=== PATIENT | male | born 1960 | race Caucasian/White ===

== ENCOUNTER 2016-12-13 23:45 | Emergency (ER) | payer OTHER ==
[~2016-12-13] VITALS: Ht 170.2 cm; Wt 110.2 kg
[2016-12-13 23:56] VITALS: BP 165/75
--- NOTE | 2016-12-14 00:03 | PHYS DOC ---
Past Medical History Past Medical History: Depression, Diabetes-Type II, High Cholesterol, Hypertension Past Surgical History: No Surgical History Alcohol Use: None Drug Use: None Adult General Chief Complaint Chief Complaint: ELBOW PROBLEM [facility] HPI Patient is a 56 year old male presents the emergency department stating that he is having swelling to the outer part of his right elbow. He states that this is been here for the last day to 2 days. He denies any pain or discomfort. He denies any warmth or tenderness to the area. He has full range of motion of the elbow. He denies any numbness or tingling down to his fingers. Patient does states he is a diabetic and denies any change in his glucoses. Patient denies any fever, chills or any nausea or vomiting. Patient states that he is left-hand -dominant. Review of Systems Review of Systems Constitutional: Denies fever or chills [] Eyes: Denies change in visual acuity, redness, or eye pain [] HENT: Denies nasal congestion or sore throat [] Respiratory: Denies cough or shortness of breath [] Cardiovascular: No additional information not addressed in HPI [] GI: Denies abdominal pain, nausea, vomiting, bloody stools or diarrhea [] : Denies dysuria or hematuria [] Musculoskeletal: Denies back pain. Swelling to right elbow Integument: Denies rash or skin lesions [] Neurologic: Denies headache, focal weakness or sensory changes [] Allergies Allergies Allergies Coded Allergies Type Severity Reaction Last Updated Verified No Known Drug Allergies 05/31/14 No Physical Exam Physical Exam Constitutional: Well developed, well nourished, no acute distress, non-toxic appearance. [] HENT: Normocephalic, atraumatic, bilateral external ears normal, oropharynx moist, no oral exudates, nose normal. [] Eyes: PERRLA, EOMI, conjunctiva normal, no discharge. [] Neck: Normal range of motion, no tenderness, supple, no stridor. [] Cardiovascular:Heart rate regular rhythm, no murmur [] Lungs & Thorax: Bilateral breath sounds clear to auscultation [] Skin: Warm, dry, no erythema, no rash. [] Back: No tenderness Extremities: No tenderness, no cyanosis, no clubbing, ROM intact, no edema. Right elbow swelling noted with no redness no warmth noted tenderness noted. Patient with full range of motion to the elbow noted peripheral pulses 2+ cap refill brisk less than 2 seconds. Good strength noted to bilateral painter maintenance. Good sensation noted to the right hand. Neurologic: Alert and oriented X 3, normal motor function, normal sensory function, no focal deficits noted. [] Psychologic: Affect normal, judgement normal, mood normal. [] Current Patient Data Vital Signs Vital Signs Date Time Temp Pulse Resp B/P Pulse Ox O2 Delivery O2 Flow Rate FiO2 12/13/16 23:56 97.6 86 18 100 Room Air 97.6 EKG EKG [] Radiology/Procedures Radiology/Procedures [] Course & Med Decision Making Course & Med Decision Making Pertinent Labs and Imaging studies reviewed. (See chart for details) X-rays were negative for any bony abnormalities. Per Dr. Howell does appear to that there is fluid on the elbow area. He'll be placed in an Jagdeep wrap with recommendations to follow-up with orthopedic within the next 3-5 days. Signs and symptoms to return back to the emergency department as been provided. Patient agrees with discharge instructions treatment regimens and follow-up recommendations. [] Dragon Disclaimer Dragon Disclaimer This electronic medical record was generated, in whole or in part, using a voice recognition dictation system. Departure Departure Impression: Primary Impression: Effusion, left elbow Disposition: 01 HOME, SELF-CARE Condition: STABLE Referrals: ABDELRAHMAN SANTILLAN MD (PCP) SINDI STEWART MD Patient Instructions: Elbow Effusion-Brief Additional Instructions: Activity as tolerated Tylenol or Ibuprofen for pain and discomfort Jagdeep wrap for comfort Elevation as much as possible Followup with orthopedic in 5-7 days Return to emergency department as needed for signs and symptoms that become worse. FLORES BELTRAN APRN December 14, 2016 00:03
--- NOTE | 2016-12-14 07:05 | RAD ---
Right elbow, 3 views, 12/14/2016: History: Elbow swelling There is a well-defined bony fragment along the lateral margin of the lateral humeral epicondyles compatible with old trauma. No acute fracture or dislocation is identified. There is mild spurring at the elbow joint. No joint effusion is seen. There is moderate focal soft tissue swelling along the posterior aspect of the olecranon process. IMPRESSION: 1. No acute bony abnormality is detected. 2. Moderate focal soft tissue swelling posteriorly may reflect bursitis, hematoma or even abscess. Clinical correlation suggested.
== END 2016-12-14 00:35 | disposition home or self-care (01) ==
LOC: ER 23:45
DX: M25.422 Effusion, left elbow (principal); I10 Essential (primary) hypertension; E78.00 Pure hypercholesterolemia, unspecified; E11.9 Type 2 diabetes mellitus without complications; F32.9 Major depressive disorder, single episode, unspecified
CPT/HCPCS: 73080; 99284

== ENCOUNTER 2021-10-19 17:43 | Inpatient (IN) | payer OTHER ==
[~2021-10-19] VITALS: Ht 175.3 cm; Wt 95.4 kg
[~2021-10-19 17:43] MED LIST: AMOX1TAB61 PO; APIX5TAB PO; ATOR20TA58 PO; CHOL500062 PO; CLOP75TA PO; INSU100V13 SQ; INSU100V6 SQ; LISI20TA18 PO; MAGN400T48 PO; ONDA4TAB7 PO; PANT20TA2 PO; POLY2500 PO; SERT50TA PO
--- NOTE | 2021-10-19 18:10 | PHYS DOC ---
Past Medical History Past Medical History: Depression, Diabetes-Type II, High Cholesterol, Heart Disease, Hypertension, Stroke Past Surgical History: No Surgical History Smoking Status: Current Every Day Smoker Alcohol Use: None Drug Use: None General Adult EDM: Chief Complaint: ABNORMAL LABS HPI: HPI: Patient is a 61 year old male who presents with here from [place] let the [facility] with he had a witnessed fall today by staff of which they state he did not hit his head. They state that for the last 2 days he has been more lethargic than usual. They state no other symptoms. Because of the fall today they went and did some blood work and some x-rays and blood work showed he is hypernatremic. He is here today to be treated for hypernatremia. Patient has a history of stroke with cognitive functions, mute, dementia without behavior disturbance, hyperlipidemia, type 2 diabetes, neuropathy, overflow incontinence, atrial septal defect, heart aneurysm, chronic kidney disease stage II, diabetic retinopathy, coronary artery disease, hypertension. Review of Systems: Review of Systems: Constitutional: Denies fever or chills. + Hypernatremia [] Eyes: Denies change in visual acuity. [] HENT: Denies nasal congestion or sore throat. [] Respiratory: Denies cough or shortness of breath. [] Cardiovascular: Denies chest pain or edema. [] GI: Denies abdominal pain, nausea, vomiting, bloody stools or diarrhea. [] : Denies dysuria. [] Musculoskeletal: Denies back pain or joint pain. [] Integument: Denies rash. [] Neurologic: Denies headache, focal weakness or sensory changes. + Lethargy [] Endocrine: Denies polyuria or polydipsia. [] Lymphatic: Denies swollen glands. [] Psychiatric: Denies depression or anxiety. [] Heart Score: C/O Chest Pain: No HEART Score for Chest Pain: HEART Score for Chest Pain Response (Comments) Value History Slighlty/Non-Suspicious 0 ECG Nonspecific Repolarizatio 1 Age >45 - < 65 1 Risk Factors >3 Risk Factors or Hx CAD 2 Troponin < Normal Limit 0 Total 4 Risk Factors: Risk Factors: DM, Current or recent (<one month) smoker, HTN, HLP, family history of CAD, obesity. Risk Scores: Score 0 - 3: 2.5% MACE over next 6 weeks - Discharge Home Score 4 - 6: 20.3% MACE over next 6 weeks - Admit for Clinical Observation Score 7 - 10: 72.7% MACE over next 6 weeks - Early Invasive Strategies Allergies: Allergies: Allergies Coded Allergies Type Severity Reaction Last Updated Verified No Known Drug Allergies 05/31/14 No Physical Exam: PE: Constitutional: Well developed, well nourished, no acute distress, non-toxic appearance. [] HENT: Normocephalic, atraumatic, bilateral external ears normal, oropharynx moist, no oral exudates, nose normal. Dry mucous membranes. [] Eyes: PERRLA, EOMI, conjunctiva normal, no discharge. [] Neck: Normal range of motion, no tenderness, supple, no stridor. [] Cardiovascular:Heart rate regular rhythm, no murmur [] Lungs & Thorax: Bilateral breath sounds clear to auscultation [] Abdomen: Bowel sounds normal, soft, no tenderness, no masses, no pulsatile masses. [] Skin: Warm, dry, no erythema, no rash. Slight tenting. [] Back: No tenderness, no CVA tenderness. [] Extremities: No tenderness, no cyanosis, no clubbing, ROM intact, no edema. [] Neurologic: Alert and oriented X 3, normal motor function, normal sensory function, no focal deficits noted. Mute but follows commands [] Psychologic: Affect normal, judgement normal, mood normal. [] EKG: EK and read by Dr. Eller is a sinus rhythm with incomplete right bundle bran ch block but no STEMI. [] Radiology/Procedures: Radiology/Procedures: [] Impression: [facility] [address] [place], [place] [id number] IMAGING REPORT Signed PATIENT: RODRIGUEZ HITCHCOCK ACCOUNT: [id number] : 1960 LOCATION: ER AGE: 61 SEX: M EXAM STATUS: REG ER ORD. PHYSICIAN: FLORES MABRY APRN REASON: LETHRAGY PROCEDURE: PORTABLE CHEST 1V XR CHEST 1V History: Reason: LETHRAGY / Spl. Instructions: / History: Comparison: September 30, 2019 Findings: Mild ill-defined right upper lung opacity. Prominent epicardial fat pad. No pleural effusion. No pneumothorax. Unchanged heart size. Calcified right basilar pulmonary nodule, likely prior granulomatous disease. Impression: 1. Mild ill-defined right upper lung opacity, may represent atelectasis or pneumonia. Recommend follow-up to ensure resolution. Electronically signed by: Leonardo Meehan DO (10/19/2021 7:12 PM) [facility] DICTATED and SIGNED BY: LEONARDO MEEHAN DO DATE: 10/19/21 [id number] [facility] [address] [place] [address] IMAGING REPORT Signed PATIENT: RODRIGUEZ HITCHCOCK ACCOUNT: [id number] : 1960 LOCATION: ER AGE: 61 SEX: M EXAM STATUS: REG ER ORD. PHYSICIAN: FLORES MABRY APRN REASON: FALL, LETHARGY PROCEDURE: CT HEAD AND CERVICAL SPINE WO EXAM: CT HEAD WITHOUT IV CONTRAST CLINICAL HISTORY: Reason: FALL, LETHARGY / Spl. Instructions: / History: COMPARISON: None. TECHNIQUE: Routine CT of the head without contrast. Soft tissues and bone windows were r eviewed. PQRS compliance statement - One or more of the following individualized dose reduction techniques were utilized for this study: 1. Automated exposure control 2. Adjustment of the mA and/or kV according to patient size 3. Use of iterative reconstruction technique FINDINGS: There is no evidence of hemorrhage, mass or extra-axial fluid collection. Encephalomalacia left posterior parietal region extending to the temporal lobe from old infarct, stable to 09/30/2019. Otherwise, Granado-white differentiation is maintained with no evidence of edema. Subcortical, periventricular as well as deep white matter foci of hypoattenuation likely changes of chronic small vessel disease. There is no mass effect or shift of the intracranial structures. The ventricles, basilar cisterns and cortical sulci are normal in size and configuration for the patients stated age. The cerebellum and brainstem are unremarkable. The calvarium demonstrates no evidence of fracture or focal lesion. There is normal aeration of the visualized paranasal sinuses and mastoid air cells. The visualized portions of the orbits are normal. Atherosclerotic calcifications of the intracranial internal carotid and vertebral arteries is seen. IMPRESSION: 1. No evidence for acute intracranial process. 2. White matter changes likely chronic small vessel disease. Encephalomalacia left parietal region if there is clinical concern for superimposed acute infarct, MRI is recommended. EXAM: CT CERVICAL SPINE WITHOUT IV CONTRAST CLINICAL HISTORY: Reason: FALL, LETHARGY / Spl. Instructions: / History: COMPARISON: None available. TECHNIQUE: Helical CT of the cervical spine was performed. Axial, coronal and sagittal reformatted images were also performed. PQRS compliance statement - One or more of the following individualized dose reduction techniques were utilized for this study: 1. Automated exposure control 2. Adjustment of the mA and/or kV according to patient size 3. Use of iterative reconstruction technique FINDINGS: Vertebral body heights are preserved. No spondylolisthesis. Atlantodental degenerative changes are seen. Mild C4-5, C5-6 disc height loss. Small posterior disc osteophyte complexes at these levels. No spondylolisthesis. Straightening of the normal cervical lordosis. IMPRESSION: 1. Multilevel spondylosis as above 2. Negative acute fracture or subluxation. Electronically signed by: Edmond Royal MD (10/19/2021 7:11 PM) [facility] DICTATED and SIGNED BY: EDMOND ROYAL MD DATE: 10/19/21 [id number] 0 Course & Med Decision Making: Course & Med Decision Making Pertinent Labs and Imaging studies reviewed. (See chart for details) See HPI. Mucous membranes are dry. There is slight tenting. Patient is following commands. 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 Lungs are clear in upper lobes diminished in lower lobes. Skin pink warm and dry. I spoke to Dr. Morin who stated to start the patient on D5W at 150 an hour. He stated to do the high intensity insulin sliding scale every 6 hours. Patient received 1 L of LR that was okayed by Dr. Eller to give when the patient got here. Patient hypotensive. Dr. Morin stated that the nursing facility stated that he was lethargic, was running a fever and had a fall. We did not get a report of any fever or possible infection. This x-ray shows possible pneumonia. I went ahead and start him on azithromycin and Rocephin. I have spoken to the daughter and gave her an update on the patient. Patient is shaking his head yes and no when questions are asked. [] Espinoza Disclaimer: Dragkiel Disclaimer: This electronic medical record was generated, in whole or in part, using a voice recognition dictation system. Departure Departure Impression: Primary Impression: Hypernatremia Additional Impressions: Hypotension Qualified Codes: I95.9 - Hypotension, unspecified Pneumonia Qualified Codes: J18.9 - Pneumonia, unspecified organism Disposition: ADMITTED INPATIENT Admitting Physician: Madi. Brasher Condition: STABLE Referrals: ROSANGELA MORIN MD (PCP) FLORES MABRY MAINTENANCE PORTER Oct 19, 2021 18:10
[2021-10-19] MEDS ORDERED: IV RINGERS,LACTATED 500ML 500 ML IV ONE (18:15)
[2021-10-19 18:42] LABS: BASO % 0 % (0-3); EOS # 0.1 x10^3/uL (0.0-0.7); EOS % 1 % (0-3); HEMATOCRIT 39.3 % (39.0-53.0); HEMOGLOBIN 12.6 g/dL (13.0-17.5); LYMPH % 19 % (24-48); MEAN CORPUSCULAR HEMOGLOBIN 30 pg (25-35); MEAN CORPUSCULAR HGB CONC 32 g/dL (31-37); MEAN CORPUSCULAR VOLUME 95 fL (79-100); MONO # 0.4 x10^3/uL (0.0-1.1); MONO % 4 % (0-9); NEUT % 76 % (31-73); PLATELET COUNT 240 x10^3/uL (140-400); RED BLOOD COUNT 4.16 x10^6/uL (4.30-5.70); RED CELL DISTRIBUTION WIDTH 12.4 % (11.5-14.5); WHITE BLOOD COUNT 10.5 x10^3/uL (4.0-11.0)
[2021-10-19] MEDS ORDERED: IV RINGERS,LACTATED 1000ML 1,000 ML IV ONE (18:45)
[2021-10-19 19:02] LABS: ALBUMIN 3.9 g/dL (3.4-5.0); ALBUMIN/GLOBULIN RATIO 0.9 (1.0-1.7); CALCIUM 9.3 mg/dL (8.5-10.1); CREATININE 1.9 mg/dL (0.7-1.3); MAGNESIUM 3.2 mg/dL (1.8-2.4); POTASSIUM 4.2 mmol/L (3.5-5.1); TOTAL BILIRUBIN 0.5 mg/dL (0.2-1.0); TOTAL PROTEIN 8.1 g/dL (6.4-8.2)
--- NOTE | 2021-10-19 19:13 | RAD ---
EXAM: CT HEAD WITHOUT IV CONTRAST CLINICAL HISTORY: Reason: FALL, LETHARGY / Spl. Instructions: / History: COMPARISON: None. TECHNIQUE: Routine CT of the head without contrast. Soft tissues and bone windows were reviewed. PQRS compliance statement - One or more of the following individualized dose reduction techniques wer e utilized for this study: 1. Automated exposure control 2. Adjustment of the mA and/or kV according to patient size 3. Use of iterative reconstruction technique FINDINGS: There is no evidence of hemorrhage, mass or extra-axial fluid collection. Encephalomalacia left posterior parietal region extending to the temporal lobe from old infarct, stab le to 09/30/2019. Otherwise, Granado-white differentiation is maintained with no evidence of edema. Subco rtical, periventricular as well as deep white matter foci of hypoattenuation likely changes of chroni c small vessel disease. There is no mass effect or shift of the intracranial structures. The ventricles, basilar cisterns and cortical sulci are normal in size and configuration for the liza ents stated age. The cerebellum and brainstem are unremarkable. The calvarium demonstrates no evidence of fracture or focal lesion. There is normal aeration of the visualized paranasal sinuses and mastoid air cells. The visualized portions of the orbits are normal. Atherosclerotic calcifications of the intracranial internal carotid and vertebral arteries is seen. IMPRESSION: 1. No evidence for acute intracranial process. 2. White matter changes likely chronic small vessel disease. Encephalomalacia left parietal region i f there is clinical concern for superimposed acute infarct, MRI is recommended. EXAM: CT CERVICAL SPINE WITHOUT IV CONTRAST CLINICAL HISTORY: Reason: FALL, LETHARGY / Spl. Instructions: / History: COMPARISON: None available. TECHNIQUE: Helical CT of the cervical spine was performed. Axial, coronal and sagittal reformatted im ages were also performed. PQRS compliance statement - One or more of the following individualized dose reduction techniques wer e utilized for this study: 1. Automated exposure control 2. Adjustment of the mA and/or kV according to patient size 3. Use of iterative reconstruction technique FINDINGS: Vertebral body heights are preserved. No spondylolisthesis. Atlantodental degenerative changes are seen. Mild C4-5, C5-6 disc height loss. Small posterior disc osteophyte complexes at these levels. No spond ylolisthesis. Straightening of the normal cervical lordosis. IMPRESSION: 1. Multilevel spondylosis as above 2. Negative acute fracture or subluxation. Electronically signed by: Edmond Solano MD (10/19/2021 7:11 PM) [facility]
--- NOTE | 2021-10-19 19:14 | RAD ---
XR CHEST 1V History: Reason: LETHRAGY / Spl. Instructions: / History: Comparison: September 30, 2019 Findings: Mild ill-defined right upper lung opacity. Prominent epicardial fat pad. No pleural effusion. No pneu mothorax. Unchanged heart size. Calcified right basilar pulmonary nodule, likely prior granulomatous disease. Impression: 1. Mild ill-defined right upper lung opacity, may represent atelectasis or pneumonia. Recommend foll ow-up to ensure resolution. Electronically signed by: Leonardo Meehan DO (10/19/2021 7:12 PM) [facility]
[2021-10-19] MEDS ORDERED: IV DEXTROSE 5% 250 ML BAG. IV PRN (19:15)
[2021-10-19] MEDS ORDERED: DEXTROSE 50% 25 GM / 50ML DISP.SYRIN. IV PRN (19:15)
[2021-10-19] MEDS: AZITHROMYCIN 500 MG in IV NORMAL SALINE 250ML 250 ML IV SCH (19:56)
[2021-10-19] MEDS: cefTRIAXone IV Push 1 GM VIAL. IVP SCH (20:00)
[2021-10-19 20:51] VITALS: BP 96/54
[2021-10-19 22:35] VITALS: BP 92/60
[2021-10-19] MEDS ORDERED: BISA10SU4 RC (22:54)
[2021-10-19] MEDS ORDERED: CHOL500021 PO (22:54)
[2021-10-19] MEDS: IV DEXTROSE 5% 1,000 ML IV SCH (23:48)
[2021-10-20] MEDS: IV DEXTROSE 5% 1,000 ML IV SCH ×3 (02:10→17:08)
[2021-10-20 02:29] VITALS: BP 112/61
[2021-10-20 06:15] LABS: BASO % 0 % (0-3); EOS # 0.2 x10^3/uL (0.0-0.7); EOS % 2 % (0-3); HEMATOCRIT 36.4 % (39.0-53.0); HEMOGLOBIN 11.7 g/dL (13.0-17.5); LYMPH # 2.5 x10^3/uL (1.0-4.8); LYMPH % 24 % (24-48); MEAN CORPUSCULAR HEMOGLOBIN 30 pg (25-35); MEAN CORPUSCULAR HGB CONC 32 g/dL (31-37); MEAN CORPUSCULAR VOLUME 94 fL (79-100); MONO # 0.4 x10^3/uL (0.0-1.1); MONO % 4 % (0-9); NEUT # 7.4 x10^3/uL (1.8-7.7); NEUT % 70 % (31-73); PLATELET COUNT 196 x10^3/uL (140-400); RED BLOOD COUNT 3.86 x10^6/uL (4.30-5.70); RED CELL DISTRIBUTION WIDTH 12.6 % (11.5-14.5); WHITE BLOOD COUNT 10.5 x10^3/uL (4.0-11.0)
[2021-10-20 06:32] LABS: ALBUMIN 3.5 g/dL (3.4-5.0); ALBUMIN/GLOBULIN RATIO 0.9 (1.0-1.7); CALCIUM 8.9 mg/dL (8.5-10.1); CREATININE 1.8 mg/dL (0.7-1.3); GFR 38.3; POTASSIUM 3.9 mmol/L (3.5-5.1); TOTAL BILIRUBIN 0.5 mg/dL (0.2-1.0); TOTAL PROTEIN 7.2 g/dL (6.4-8.2)
[2021-10-20 07:00] VITALS: BP 107/56
--- NOTE | 2021-10-20 07:41 | EKG ---
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
[2021-10-20 10:51] VITALS: BP 112/58
--- NOTE | 2021-10-20 11:12 | PDOC2 ---
CONSULT Date of Consult Date of Consult DATE: 10/20/21 TIME: 11:05 Reason for Consult Reason for Consult: JUVENTINO Referring Physician Referring Physician: LUCIANA Identification/Chief Complaint Chief Complaint CONFUSION AND FALL Source Source: Chart review History of Present Illness Reason for Visit: THIS IS A 61 YR OLD WITH A FALL AND CONFUSION. HE IS MORE LETHARGIC THAN USUAL. HE HAS UNDERLYING CONFUSION/DEMENTIA. CR OF 1.5 AND NA OF 168 ON LABS. NO HX OF CKD NOTE. HE DID HAVE AN EPISODE OF JUVENTINO IN 2019 WHICH RESOLVED WITH HYDRATION. HE IS NOTED TO HYPOTENSION ON ADMIT WITH SBP ABOUT 80. NO OTHER HX NOTED. IMAGING NEG FOR ACUTE FINDINGS Past Medical History Cardiovascular: HTN, Hyperlipidemia CENTRAL NERVOUS SYSTEM: CVA, Dementia Renal/: No pertinent hx Endocrine: Diabetes Family History Family History: Hypertension Social History No ALCOHOL: none Drugs: None Lives: Snf Current Problem List Problem List Problems Medical Problems: (1) Pneumonia Status: Acute Current Medications Current Medications Current Medications Ringer's Solution 500 ml @ 500 mls/hr 1X ONCE IV ; Start 10/19/21 at 18:15; Stop 10/19/21 at 18:33; Status DC Ringer's Solution 1,000 ml @ 999 mls/hr 1X ONCE IV Last administered on 10/19/21at 18:33; Start 10/19/21 at 18:45; Stop 10/19/21 at 19:45; Status DC Insulin Human Lispro (HumaLOG) 0-9 UNITS Q6HRS SQ ; Start 10/20/21 at 19:30; Stop 10/20/21 at 10:36; Status DC Dextrose (Dextrose 50%-Water Syringe) 12.5 gm PRN Q15MIN PRN IV SEE COMMENTS; Start 10/19/21 at 19:15 Dextrose (Iv Dextrose 5%) 250 ml PRN Q15MIN PRN IV SEE COMMENTS; Start 10/19/21 at 19:15 Dextrose 1,000 ml @ 150 mls/hr Q6H40M IV Last administered on 10/20/21at 10:55; Start 10/19/21 at 19:30 Azithromycin 500 mg/Sodium Chloride 250 ml @ 250 mls/hr Q24H IV Last administered on 10/19/21at 19:56; Start 10/19/21 at 20:00 Ceftriaxone Sodium (Rocephin) 1 gm Q24H IVP Last administered on 10/19/21at 20:00; Start 10/19/21 at 20:00 Insulin Human Lispro (HumaLOG) 0-9 UNITS Q6HRS SQ ; Start 10/20/21 at 12:00 Active Scripts Active Reported D3-50 (Cholecalciferol (Vitamin D3)) 50,000 Unit Capsule 2,000 Unit PO DAILY Bisacodyl 10 Mg Supp.rect 10 Mg RC PRN DAILY PRN Zofran (Ondansetron Hcl) 4 Mg Tablet 4 Mg PO PRN Q4HRS PRN Zoloft (Sertraline Hcl) 50 Mg Tablet 75 Mg PO DAILY Protonix (Pantoprazole Sodium) 20 Mg Tablet.dr 20 Mg PO DAILY Magnesium Oxide 400 Mg Tablet 1 Tab PO BID Lisinopril 20 Mg Tablet 1 Tab PO DAILY Levemir (Insulin Detemir) 100 Unit/1 Ml Vial 24 Unit SQ HS Humalog (Insulin Lispro) 100 Unit/1 Ml Vial 5 Unit SQ TIDAC Eliquis (Apixaban) 5 Mg Tablet 5 Mg PO BIDACLD Clopidogrel (Clopidogrel Bisulfate) 75 Mg Tablet 75 Mg PO DAILY Atorvastatin Calcium 20 Mg Tablet 20 Mg PO HS Allergies Allergies: Coded Allergies: No Known Drug Allergies (Unverified , 05/31/14) ROS Review of System UNABLE TO OBTAIN Physical Exam General: Cooperative HEENT: Atraumatic, PERRLA, Other (DRY MUCOSA) Lungs: Clear to auscultation Heart: Regular rate Abdomen: Normal bowel sounds Extremities: No clubbing Skin: No breakdown Neuro: Other (CONFUSED) Psych/Mental Status: Other (CONFUSED) MUSCULOSKELETAL: Other (ATROPHY) Vitals VITALS Vital Signs Date Time Temp Pulse Resp B/P (MAP) Pulse Ox O2 Delivery O2 Flow Rate FiO2 10/20/21 10:51 98.9 67 16 112/58 (76) 98 Room Air 98.9 Labs Labs Laboratory Tests Test 10/19/21 18:00 10/20/21 05:40 10/20/21 07:19 White Blood Count 10.5 x10^3/uL (4.0-11.0) 10.5 x10^3/uL (4.0-11.0) Red Blood Count 4.16 x10^6/uL (4.30-5.70) 3.86 x10^6/uL (4.30-5.70) Hemoglobin 12.6 g/dL (13.0-17.5) 11.7 g/dL (13.0-17.5) Hematocrit 39.3 % (39.0-53.0) 36.4 % (39.0-53.0) Mean Corpuscular Volume 95 fL (79-100) 94 fL (79-100) Mean Corpuscular Hemoglobin 30 pg (25-35) 30 pg (25-35) Mean Corpuscular Hemoglobin Concent 32 g/dL (31-37) 32 g/dL (31-37) Red Cell Distribution Width 12.4 % (11.5-14.5) 12.6 % (11.5-14.5) Platelet Count 240 x10^3/uL (140-400) 196 x10^3/uL (140-400) Neutrophils (%) (Auto) 76 % (31-73) 70 % (31-73) Lymphocytes (%) (Auto) 19 % (24-48) 24 % (24-48) Monocytes (%) (Auto) 4 % (0-9) 4 % (0-9) Eosinophils (%) (Auto) 1 % (0-3) 2 % (0-3) Basophils (%) (Auto) 0 % (0-3) 0 % (0-3) Neutrophils # (Auto) 8.0 x10^3/uL (1.8-7.7) 7.4 x10^3/uL (1.8-7.7) Lymphocytes # (Auto) 2.0 x10^3/uL (1.0-4.8) 2.5 x10^3/uL (1.0-4.8) Monocytes # (Auto) 0.4 x10^3/uL (0.0-1.1) 0.4 x10^3/uL (0.0-1.1) Eosinophils # (Auto) 0.1 x10^3/uL (0.0-0.7) 0.2 x10^3/uL (0.0-0.7) Basophils # (Auto) 0.0 x10^3/uL (0.0-0.2) 0.0 x10^3/uL (0.0-0.2) Sodium Level 163 mmol/L (136-145) 165 mmol/L (136-145) Potassium Level 4.2 mmol/L (3.5-5.1) 3.9 mmol/L (3.5-5.1) Chloride Level 125 mmol/L (98-107) 128 mmol/L (98-107) Carbon Dioxide Level 27 mmol/L (21-32) 28 mmol/L (21-32) Anion Gap 11 (6-14) 9 (6-14) Blood Urea Nitrogen 63 mg/dL (8-26) 63 mg/dL (8-26) Creatinine 1.9 mg/dL (0.7-1.3) 1.8 mg/dL (0.7-1.3) Estimated GFR (Cockcroft-Gault) 36.0 38.3 BUN/Creatinine Ratio 33 (6-20) 35 (6-20) Glucose Level 153 mg/dL (70-99) 175 mg/dL (70-99) Lactic Acid Level 0.8 mmol/L (0.4-2.0) Calcium Level 9.3 mg/dL (8.5-10.1) 8.9 mg/dL (8.5-10.1) Magnesium Level 3.2 mg/dL (1.8-2.4) Total Bilirubin 0.5 mg/dL (0.2-1.0) 0.5 mg/dL (0.2-1.0) Aspartate Amino Transf (AST/SGOT) 133 U/L (15-37) 77 U/L (15-37) Alanine Aminotransferase (ALT/SGPT) 188 U/L (16-63) 141 U/L (16-63) Alkaline Phosphatase 83 U/L (46-116) 84 U/L (46-116) Troponin I High Sensitivity 16 ng/L (4-75) YK-Zjm-A-Type Natriuretic Peptide 325 pg/mL (0-124) Total Protein 8.1 g/dL (6.4-8.2) 7.2 g/dL (6.4-8.2) Albumin 3.9 g/dL (3.4-5.0) 3.5 g/dL (3.4-5.0) Albumin/Globulin Ratio 0.9 (1.0-1.7) 0.9 (1.0-1.7) Glucose (Fingerstick) 161 mg/dL (70-99) Laboratory Tests Test 10/19/21 18:00 10/20/21 05:40 10/20/21 07:19 White Blood Count 10.5 x10^3/uL (4.0-11.0) 10.5 x10^3/uL (4.0-11.0) Red Blood Count 4.16 x10^6/uL (4.30-5.70) 3.86 x10^6/uL (4.30-5.70) Hemoglobin 12.6 g/dL (13.0-17.5) 11.7 g/dL (13.0-17.5) Hematocrit 39.3 % (39.0-53.0) 36.4 % (39.0-53.0) Mean Corpuscular Volume 95 fL (79-100) 94 fL (79-100) Mean Corpuscular Hemoglobin 30 pg (25-35) 30 pg (25-35) Mean Corpuscular Hemoglobin Concent 32 g/dL (31-37) 32 g/dL (31-37) Red Cell Distribution Width 12.4 % (11.5-14.5) 12.6 % (11.5-14.5) Platelet Count 240 x10^3/uL (140-400) 196 x10^3/uL (140-400) Neutrophils (%) (Auto) 76 % (31-73) 70 % (31-73) Lymphocytes (%) (Auto) 19 % (24-48) 24 % (24-48) Monocytes (%) (Auto) 4 % (0-9) 4 % (0-9) Eosinophils (%) (Auto) 1 % (0-3) 2 % (0-3) Basophils (%) (Auto) 0 % (0-3) 0 % (0-3) Neutrophils # (Auto) 8.0 x10^3/uL (1.8-7.7) 7.4 x10^3/uL (1.8-7.7) Lymphocytes # (Auto) 2.0 x10^3/uL (1.0-4.8) 2.5 x10^3/uL (1.0-4.8) Monocytes # (Auto) 0.4 x10^3/uL (0.0-1.1) 0.4 x10^3/uL (0.0-1.1) Eosinophils # (Auto) 0.1 x10^3/uL (0.0-0.7) 0.2 x10^3/uL (0.0-0.7) Basophils # (Auto) 0.0 x10^3/uL (0.0-0.2) 0.0 x10^3/uL (0.0-0.2) Sodium Level 163 mmol/L (136-145) 165 mmol/L (136-145) Potassium Level 4.2 mmol/L (3.5-5.1) 3.9 mmol/L (3.5-5.1) Chloride Level 125 mmol/L (98-107) 128 mmol/L (98-107) Carbon Dioxide Level 27 mmol/L (21-32) 28 mmol/L (21-32) Anion Gap 11 (6-14) 9 (6-14) Blood Urea Nitrogen 63 mg/dL (8-26) 63 mg/dL (8-26) Creatinine 1.9 mg/dL (0.7-1.3) 1.8 mg/dL (0.7-1.3) Estimated GFR (Cockcroft-Gault) 36.0 38.3 BUN/Creatinine Ratio 33 (6-20) 35 (6-20) Glucose Level 153 mg/dL (70-99) 175 mg/dL (70-99) Lactic Acid Level 0.8 mmol/L (0.4-2.0) Calcium Level 9.3 mg/dL (8.5-10.1) 8.9 mg/dL (8.5-10.1) Magnesium Level 3.2 mg/dL (1.8-2.4) Total Bilirubin 0.5 mg/dL (0.2-1.0) 0.5 mg/dL (0.2-1.0) Aspartate Amino Transf (AST/SGOT) 133 U/L (15-37) 77 U/L (15-37) Alanine Aminotransferase (ALT/SGPT) 188 U/L (16-63) 141 U/L (16-63) Alkaline Phosphatase 83 U/L (46-116) 84 U/L (46-116) Troponin I High Sensitivity 16 ng/L (4-75) RT-Yai-B-Type Natriuretic Peptide 325 pg/mL (0-124) Total Protein 8.1 g/dL (6.4-8.2) 7.2 g/dL (6.4-8.2) Albumin 3.9 g/dL (3.4-5.0) 3.5 g/dL (3.4-5.0) Albumin/Globulin Ratio 0.9 (1.0-1.7) 0.9 (1.0-1.7) Glucose (Fingerstick) 161 mg/dL (70-99) Images Images PATIENT: RODRIGUEZ HITCHCOCK ACCOUNT: [id number] : 1960 LOCATION: ER AGE: 61 SEX: M EXAM STATUS: REG ER ORD. PHYSICIAN: FLORES MABRY APRN REASON: LETHRAGY PROCEDURE: PORTABLE CHEST 1V XR CHEST 1V History: Reason: LETHRAGY / Spl. Instructions: / History: Comparison: September 30, 2019 Findings: Mild ill-defined right upper lung opacity. Prominent epicardial fat pad. No pleural effusion. No pneumothorax. Unchanged heart size. Calcified right basilar pulmonary nodule, likely prior granulomatous disease. Impression: 1. Mild ill-defined right upper lung opacity, may represent atelectasis or pneumonia. Recommend follow-up to ensure resolution. Electronically signed by: Leonardo Meehan DO (10/19/2021 7:12 PM) [facility] DICTATED and SIGNED BY: LEONARDO MEEHAN DO DATE: 10/19/21 [id number] Assessment/Plan Assessment/Plan IMP JUVENTINO-CR OF 1.5 HYPERNATREMIA HYPOTENSION DEHYDRATION ENCEPHALOPATHY - ACUTE/CHRONIC ? RUL PNEUMONIA PLAN HYDRATION CHECK UA AND CPK ANTIBIOTICS LABS IN AM WILL FOLLOW JANET BOWER MD Oct 20, 2021 11:12
[2021-10-20] MEDS: INSULIN LISPRO 300 UNITS/3 ML VIAL. SQ SCH ×2 (11:43→18:04)
[2021-10-20] MEDS ORDERED: BISACODYL 10 MG SUPP.RECT. RC PRN (12:15)
[2021-10-20] MEDS ORDERED: ONDANSETRON ODT 4 MG TAB.RAPDIS. PO PRN (12:30)
[2021-10-20] MEDS: CHOLECALCIFEROL (VITAMIN D3) 1,000 UNIT TABLET PO SCH (12:44)
[2021-10-20] MEDS: CLOPIDOGREL BISULFATE 75 MG TABLET PO SCH (12:44)
[2021-10-20] MEDS: MAGNESIUM OXIDE 400 MG TABLET PO SCH ×2 (12:44→21:55)
[2021-10-20] MEDS ORDERED: ANTI-COAG MONITOR BY PHARMACY. MC PRN (13:00)
--- NOTE | 2021-10-20 13:01 | NUR ---
SS following for discharge planning. SS reviewed pt chart and discussed with pt RN. Pt is LTC resident from [facility], ; fax [phone]. Pt is currently on room air. COVID19 negative on rapid test. Nephrology consulted. Pt on IV Azithromycin and IV Rocephin. SS will continue to follow for discharge planning.
--- NOTE | 2021-10-20 13:21 | HP ---
DATE OF SERVICE: 10/20/2021 ADMIT DATE: 10/19/2021 HISTORY OF PRESENT ILLNESS: The patient is a 61-year-old male patient, a resident at [facility] in [place], who presented to the Emergency Room of [facility] as he had a witnessed fall the day of admission by the nursing staff therapist. They stated that he did not hit his head. They stated that over the last 2 days, he has been more lethargic than usual; however, they stated that he has no other symptoms because of the fall today. They went and did some blood work and some x-rays and blood work showed that the patient was extremely hypernatremic and therefore, the patient was sent to the Emergency Room for further evaluation and treatment. In the Emergency Room of [facility], he was found to be hypotensive with the blood pressure on arrival was only 84 mmHg. His lab work showed that he has severe hypernatremia with a serum sodium of 163; however, his BUN is 63, creatinine 1.9. He has also slightly elevated AST, ALT. Because of hypotension, he was given a liter of normal saline, was started on D5W and was admitted for further evaluation and treatment. PAST MEDICAL HISTORY: Significant for hypertension; hyperlipidemia; type 2 diabetes mellitus; multiple cerebral infarcts; persistent fossa ovalis, on lifelong anticoagulation. He also had diabetic peripheral neuropathy, diabetic nephropathy, cognitive impairment and aphasia. PAST SURGICAL HISTORY: Significant for transesophageal echocardiogram, but no other surgical procedures reported. FAMILY HISTORY: Mother at 80 secondary to Alzheimer's disease. At the age of 70, father is , the cause of which is not known. Brother has multiple pulmonary emboli. SOCIAL HISTORY: , has 1 son and 2 daughters. He is an ex-smoker. He does not drink alcohol or use recreational drugs. He is on disability secondary to chronic back pain and diabetic peripheral neuropathy. ALLERGIES: He has no known drug allergies. MEDICATIONS: He is currently on the following medications: He is on apixaban 5 mg twice a day, clopidogrel sulfate 75 mg once a day, atorvastatin calcium 20 mg at bedtime, lisinopril 20 mg once a day, sertraline 75 mg once a day, magnesium oxide 400 mg twice a day, bisacodyl 10 mg suppository rectally daily p.r.n. for constipation, ondansetron 4 mg every 4 hours, Protonix 40 mg once a day. He is on detemir insulin 24 units at bedtime and insulin lispro 5 units before meals. He is on cholecalciferol 2000 units once a day. REVIEW OF SYSTEMS: Unobtainable. The patient continued to be lethargic and aphasic. PHYSICAL EXAMINATION: GENERAL: On arrival to the Emergency Room, there was no pallor, jaundice, cyanosis or thyromegaly. No jugular venous distention. No limb edema. VITAL SIGNS: His heart rate was 88, blood pressure was 87/52, temperature was 97.8, respiratory rate was 16 and oxygen saturation was 95%. HEAD, EYES, EARS, NOSE AND THROAT: Normocephalic, atraumatic. NECK: Supple. HEART: Showed normal first and second heart sounds. No gallop or murmur. CHEST: Clear to auscultation. No crepitation or rhonchi. ABDOMEN: Distended, soft, nontender. NEUROLOGIC: The patient was lethargic, but arousable. He opens eyes, but does not track or follow command. All his cranial nerves are intact. He moves his extremities without difficulty with no obvious neurological deficit. He is aphasic, but follows commands. His affect, judgment and mood were normal. DIAGNOSTIC DATA: His EKG showed that he was in sinus rhythm with incomplete right bundle branch block, but no ST-segment elevation myocardial infarction. His chest x-ray showed mild ill-defined right upper lung opacity, may represent atelectasis, pneumonia. He has had CT scan of the head and cervical spine, which showed the patient has no evidence of acute intracranial process, white matter changes, likely chronic small vessel disease, encephalomalacia of the left parietal region. There is clinical concern for superimposed acute infarct, MRI is recommended. CT scan of the cervical spine showed that the vertebral body heights are preserved, no spondylolisthesis, atlantodental degenerative changes are seen. Mild C4-C5, C5-C6 disk height loss, small posterior disk osteophyte complexes at these levels. Straightening of the normal cervical lordosis. ASSESSMENT AND PLAN: The patient was admitted with altered mental status, hypernatremia, acute prerenal azotemia and acute on chronic kidney injury, questionable pneumonia. Plan is to continue with the IV fluid, encourage water intake and also continue with IV antibiotic and we will monitor his labs on a daily basis and decide on further management accordingly. The patient has a multitude of other medical problems including hypertension, hyperlipidemia, type 2 diabetes mellitus. He has multiple cerebral infarcts and persistent fossa ovalis, on lifelong anticoagulation; has diabetic peripheral neuropathy; diabetic nephropathy and cognitive impairment and aphasia. EMELINA DR: Maria Guadalupe TID: [id number]
[2021-10-20 15:00] VITALS: BP 125/58
[2021-10-20] MEDS: PANTOPRAZOLE 40 MG TABLET.DR. PO SCH (15:18)
[2021-10-20 19:05] VITALS: BP 149/63
[2021-10-20] MEDS ORDERED: INSULIN LISPRO 300 UNITS/3 ML VIAL. SQ SCH (19:30)
[2021-10-20] MEDS ORDERED: oxyCODONE IR 5 MG TABLET PO PRN (20:45)
[2021-10-20] MEDS: AZITHROMYCIN 500 MG in IV NORMAL SALINE 250ML 250 ML IV SCH (21:52)
[2021-10-20] MEDS: LACTOBACILLUS RHAMNOSUS GG 1 CAPSULE. PO SCH (21:55)
[2021-10-20] MEDS: ATORVASTATIN CALCIUM 20 MG TABLET PO SCH (21:56)
[2021-10-20] MEDS: APIXABAN 5 MG TABLET. PO SCH (21:56)
[2021-10-20] MEDS: cefTRIAXone IV Push 1 GM VIAL. IVP SCH (21:57)
[2021-10-20 22:28] VITALS: BP 106/58
[2021-10-21 02:37] VITALS: BP 157/66
[2021-10-21] MEDS: IV DEXTROSE 5% 1,000 ML IV SCH ×6 (02:37→22:23)
[2021-10-21] MEDS: INSULIN LISPRO 300 UNITS/3 ML VIAL. SQ SCH ×5 (06:00→21:00)
[2021-10-21 07:00] VITALS: BP 87/52
[2021-10-21 07:35] LABS: CALCIUM 7.9 mg/dL (8.5-10.1); CREATININE 1.4 mg/dL (0.7-1.3); GFR 51.2; POTASSIUM 3.5 mmol/L (3.5-5.1)
[2021-10-21] MEDS: LACTOBACILLUS RHAMNOSUS GG 1 CAPSULE. PO SCH ×2 (08:25→22:13)
[2021-10-21] MEDS: MAGNESIUM OXIDE 400 MG TABLET PO SCH ×2 (08:25→22:13)
[2021-10-21] MEDS: PANTOPRAZOLE 40 MG TABLET.DR. PO SCH (08:25)
[2021-10-21] MEDS: CLOPIDOGREL BISULFATE 75 MG TABLET PO SCH (08:26)
[2021-10-21] MEDS: APIXABAN 5 MG TABLET. PO SCH ×2 (08:26→22:14)
[2021-10-21] MEDS: CHOLECALCIFEROL (VITAMIN D3) 1,000 UNIT TABLET PO SCH (08:26)
[2021-10-21 09:44] LABS: INFLUENZA A PATIENT NEGATIVE (NEGATIVE); INFLUENZA B PATIENT NEGATIVE (NEGATIVE)
[2021-10-21 10:44] VITALS: BP 103/58
--- NOTE | 2021-10-21 11:02 | PDOC ---
Renal-Progress Notes Subjective Notes Notes NO NEW COMPLAINTS History of Present Illness Hx of present illness STABLE Vitals Vitals Vital Signs Date Time Temp Pulse Resp B/P (MAP) Pulse Ox O2 Delivery O2 Flow Rate FiO2 10/21/21 10:44 98.4 55 20 103/58 (73) 95 Room Air 98.4 Weight Weight [ ] I.O. Intake and Output Intake and Output 10/21/21 07:00 Intake Total 600 ml Balance 600 ml Intake Oral 600 ml # Voids 5 # Bowel Movements 4 Labs Labs Laboratory Tests Test 10/20/21 11:35 10/20/21 18:01 10/20/21 21:20 10/21/21 06:45 Glucose (Fingerstick) 179 mg/dL (70-99) 223 mg/dL (70-99) 234 mg/dL (70-99) Sodium Level 150 mmol/L (136-145) Potassium Level 3.5 mmol/L (3.5-5.1) Chloride Level 116 mmol/L (98-107) Carbon Dioxide Level 26 mmol/L (21-32) Anion Gap 8 (6-14) Blood Urea Nitrogen 37 mg/dL (8-26) Creatinine 1.4 mg/dL (0.7-1.3) Estimated GFR (Cockcroft-Gault) 51.2 Glucose Level 135 mg/dL (70-99) Calcium Level 7.9 mg/dL (8.5-10.1) Test 10/21/21 07:42 10/21/21 09:05 Glucose (Fingerstick) 126 mg/dL (70-99) Influenza Type A Antigen Negative (NEGATIVE) Influenza Type B Antigen Negative (NEGATIVE) SARS-CoV-2 Antigen (Rapid) Negative (NEGATIVE) Micro Micro Microbiology 10/19/21 Blood Culture - Preliminary, Resulted NO GROWTH AFTER 1 DAY Review of Systems Constitutional: yes: alert, other (CONFUSION) Ears/Nose/Throat: Yes: no symptom reported Eyes: Yes: no symptom reported Pulmonary: Yes no symptom reported Cardiovascular: Yes no symptom reported Gastrointestional: Yes: no symptom reported Genitourinary: Yes: no symptom reported Musculoskeletal: Yes: no symptom reported Skin: Yes no symptom reported Psychiatric/Neurological: Yes: no symptom reported Physical Exam General Appearance: no apparent distress Skin: warm Respiratory: decreased breath sounds Heart: S1S2 Abdomen: soft, bowel sounds present Genitourinary: bladder flat Extremities: pulses present, atrophy Neurology: confused Assessment Assessment IMP JUVENTINO-CR OF 1.5 HYPERNATREMIA-IMPROVING HYPOTENSION-RESOLVED DEHYDRATION ENCEPHALOPATHY - ACUTE/CHRONIC ? RUL PNEUMONIA PLAN HYDRATION ANTIBIOTICS LABS IN AM WILL FOLLOW JANET BOWER MD Oct 21, 2021 11:01
--- NOTE | 2021-10-21 13:36 | PN ---
DATE: 10/21/2021 SUBJECTIVE: The patient is resting slightly propped up in bed, in no apparent distress. He is definitely more awake, alert, eating his lunch. He is nonverbal; however, the nursing staff did not voice any concerns that he had an eventful night. PHYSICAL EXAMINATION: GENERAL: When I examined him, he looked pale, but no jaundice, cyanosis or thyromegaly. No jugular venous distention. No lower limb edema. VITAL SIGNS: His heart rate was 55, blood pressure 103/68, temperature was 98.4, respiratory rate 20, and oxygen saturation was 95% on room air. HEAD, EYES, EARS, NOSE AND THROAT: Normocephalic, atraumatic. NECK: Supple. HEART: Showed normal first and second heart. No gallop or murmur. CHEST: Clear to auscultation. No crepitation or rhonchi. ABDOMEN: Distended, soft, nontender. NEUROLOGIC: He is definitely more awake, alert, opens eyes, tracks and nods his head. He has expressive aphasia. He is mostly bedbound, chair bound. His intake and output are incompletely recorded. LABORATORY DATA: His lab work this morning showed a white cell count of 10,500, hemoglobin 11, hematocrit 36, MCV 94 and platelet count of 196,000. His chemistry showed a serum sodium 150, potassium 3.5, chloride 116, bicarbonate 26, anion gap of 8, BUN 37, creatinine 1.4. Estimated GFR was 51 mL per minute. His glucose 135, calcium was 7.9. ASSESSMENT: 1. Altered mental status, improving. 2. Hypernatremia, improving. His serum sodium came down from 165-____. 3. Prerenal azotemia with acute on chronic kidney injury, improving. 4. Questionable pneumonia. PLAN: To continue with D5W. Continue to encourage water intake. I will continue with IV antibiotic. I am holding all his lab work normalized tomorrow. The patient has multiple other medical problems including: A. Hypertension. B. Hyperlipidemia. C. Type [address]: Maria Guadalupe TID: [id number]
--- NOTE | 2021-10-21 14:01 | NUR ---
SS following up with discharge planning. SS reviewed pt chart and discussed with pt RN. Pt is currently on room air. COVID19 negative. Pt is LTC resident from [facility], ; fax [phone]. Pt on IV Azithromycin and IV Rocephin. Clinical updates phoned and faxed to [facility]. SS will continue to follow for discharge planning.
[2021-10-21 15:00] VITALS: BP 131/61
[2021-10-21 18:49] VITALS: BP 116/56
[2021-10-21] MEDS: AZITHROMYCIN 500 MG in IV NORMAL SALINE 250ML 250 ML IV SCH (22:12)
[2021-10-21] MEDS: cefTRIAXone IV Push 1 GM VIAL. IVP SCH (22:13)
[2021-10-21] MEDS: ATORVASTATIN CALCIUM 20 MG TABLET PO SCH (22:14)
[2021-10-21 22:29] VITALS: BP 129/60
[2021-10-22 02:00] VITALS: BP 109/56
[2021-10-22 05:24] LABS: ALBUMIN/GLOBULIN RATIO 0.9 (1.0-1.7); CALCIUM 7.9 mg/dL (8.5-10.1); GFR 75.5; POTASSIUM 3.4 mmol/L (3.5-5.1); TOTAL BILIRUBIN 0.4 mg/dL (0.2-1.0); TOTAL PROTEIN 6.3 g/dL (6.4-8.2)
[2021-10-22 07:00] VITALS: BP 132/97
[2021-10-22] MEDS: INSULIN LISPRO 300 UNITS/3 ML VIAL. SQ SCH ×4 (07:30→21:00)
[2021-10-22] MEDS: CLOPIDOGREL BISULFATE 75 MG TABLET PO SCH (08:20)
[2021-10-22] MEDS: APIXABAN 5 MG TABLET. PO SCH ×2 (08:20→22:23)
[2021-10-22] MEDS: MAGNESIUM OXIDE 400 MG TABLET PO SCH ×2 (08:20→22:23)
[2021-10-22] MEDS: CHOLECALCIFEROL (VITAMIN D3) 1,000 UNIT TABLET PO SCH (08:20)
[2021-10-22] MEDS: LACTOBACILLUS RHAMNOSUS GG 1 CAPSULE. PO SCH ×2 (08:21→22:24)
[2021-10-22] MEDS: PANTOPRAZOLE 40 MG TABLET.DR. PO SCH (08:21)
[2021-10-22] MEDS: IV DEXTROSE 5% 1,000 ML IV SCH ×2 (10:45→22:40)
[2021-10-22 10:51] VITALS: BP 132/63
[2021-10-22 14:39] VITALS: BP 100/53
[2021-10-22 19:43] VITALS: BP 128/59
[2021-10-22] MEDS: cefTRIAXone IV Push 1 GM VIAL. IVP SCH (22:22)
[2021-10-22] MEDS: AZITHROMYCIN 500 MG in IV NORMAL SALINE 250ML 250 ML IV SCH (22:22)
[2021-10-22] MEDS: ATORVASTATIN CALCIUM 20 MG TABLET PO SCH (22:24)
[2021-10-22 23:10] VITALS: BP 156/66
[2021-10-23 03:43] VITALS: BP 128/56
[2021-10-23 06:01] LABS: CALCIUM 8.2 mg/dL (8.5-10.1); GFR 75.5; POTASSIUM 3.3 mmol/L (3.5-5.1)
[2021-10-23 06:37] VITALS: BP 127/58
[2021-10-23] MEDS: INSULIN LISPRO 300 UNITS/3 ML VIAL. SQ SCH ×4 (07:30→21:00)
[2021-10-23] MEDS: CLOPIDOGREL BISULFATE 75 MG TABLET PO SCH (07:52)
[2021-10-23] MEDS: LACTOBACILLUS RHAMNOSUS GG 1 CAPSULE. PO SCH ×2 (07:52→22:37)
[2021-10-23] MEDS: MAGNESIUM OXIDE 400 MG TABLET PO SCH ×2 (07:52→22:37)
[2021-10-23] MEDS: PANTOPRAZOLE 40 MG TABLET.DR. PO SCH (07:52)
[2021-10-23] MEDS: APIXABAN 5 MG TABLET. PO SCH ×2 (07:52→22:37)
[2021-10-23] MEDS: CHOLECALCIFEROL (VITAMIN D3) 1,000 UNIT TABLET PO SCH (07:53)
[2021-10-23] MEDS: IV DEXTROSE 5% 1,000 ML IV SCH (09:27)
[2021-10-23] MEDS ORDERED: POTASSIUM CHLORIDE 20 MEQ TABLET.ER. PO ONE (11:00)
[2021-10-23 11:18] VITALS: BP 120/58
[2021-10-23 15:54] VITALS: BP 135/60
--- NOTE | 2021-10-23 16:50 | PN ---
DATE: 10/23/2021 SUBJECTIVE: The patient is resting, slightly propped up in bed, in no apparent distress, awake, alert. He is nonverbal, however, the nursing staff did not voice any concern. PHYSICAL EXAMINATION: GENERAL: When I saw him, he looked well and was clearly in no apparent respiratory distress. He was pale, but not jaundiced or cyanosed. No thyromegaly. No jugular venous distention. No limb edema. VITAL SIGNS: His heart rate was 68, blood pressure was 127/58, temperature 99, respiratory rate was 18, and oxygen saturation was 95% on room air. HEAD, EYES, EARS, NOSE, AND THROAT: Normocephalic, atraumatic. NECK: Supple. HEART: Showed normal first and second heart sounds. No gallop or murmur. CHEST: Showed central trachea, equal bilateral chest expansion, air entry, vesicular breath sounds. No crepitation or rhonchi. ABDOMEN: Distended, soft, nontender. NEUROLOGIC: He is demented, has multiple infarcts. He is mostly bedbound, chair bound. His intake over the last 24 hours was 1400, no output was recorded. LABORATORY DATA: This morning showed his serum sodium has normalized at 143, potassium 3.3, chloride 109, bicarbonate 27, anion gap of 7, BUN 13, creatinine 1, estimated GFR was 75 mL per minute, her glucose 151, calcium was 8.2. ASSESSMENT: 1. Altered mental status, improved. 2. Hypernatremia, improved. His serum sodium came down from 165 to 143. 3. Prerenal azotemia and acute on chronic kidney injury, improving. His creatinine is down to 1 from 1.9. 4. Questionable pneumonia. 5. The patient has multiple other medical problems including: A. Hypertension. B. Hyperlipidemia. C. Type 2 diabetes mellitus. D. Multiinfarct dementia and aphasia. PLAN: I have discontinued his IV fluid. I will replenish his potassium. Continue with IV ceftriaxone. Continue to monitor his blood sugar and he will be discharged back to [facility] tomorrow. MARIAN/ALBINA DR: Maria Guadalupe TID: [id number]
[2021-10-23 19:20] VITALS: BP 122/56
[2021-10-23] MEDS: cefTRIAXone IV Push 1 GM VIAL. IVP SCH (22:37)
[2021-10-23] MEDS: ATORVASTATIN CALCIUM 20 MG TABLET PO SCH (22:38)
[2021-10-23 22:59] VITALS: BP 128/58
[2021-10-24 02:46] VITALS: BP 124/58
[2021-10-24 06:00] LABS: CALCIUM 8.6 mg/dL (8.5-10.1); CREATININE 0.9 mg/dL (0.7-1.3); GFR 85.2; POTASSIUM 3.7 mmol/L (3.5-5.1)
[2021-10-24 06:37] VITALS: BP 136/68
[2021-10-24] MEDS: INSULIN LISPRO 300 UNITS/3 ML VIAL. SQ SCH (07:30)
[2021-10-24] MEDS: APIXABAN 5 MG TABLET. PO SCH (08:31)
[2021-10-24] MEDS: LACTOBACILLUS RHAMNOSUS GG 1 CAPSULE. PO SCH (08:31)
[2021-10-24] MEDS: PANTOPRAZOLE 40 MG TABLET.DR. PO SCH (08:31)
[2021-10-24] MEDS: MAGNESIUM OXIDE 400 MG TABLET PO SCH (08:31)
[2021-10-24] MEDS: CHOLECALCIFEROL (VITAMIN D3) 1,000 UNIT TABLET PO SCH (08:31)
[2021-10-24] MEDS: CLOPIDOGREL BISULFATE 75 MG TABLET PO SCH (08:31)
[2021-10-24] MEDS ORDERED: CEFD300C PO (09:21)
--- NOTE | 2021-10-24 09:35 | SNU/HH DC ---
DISCHARGE ORDERS DISCHARGE INFORMATION: DISCHARGE DATE: Oct 24, 2021 FINAL DIAGNOSIS Problems Medical Problems: (1) Pneumonia Status: Acute CONDITION ON DISCHARGE: Stable CODE STATUS: Code Status: Full PENITENTIARY: SNF STAY <30 DAYS: Yes POST DISCHARGE ORDERS: ACTIVITY ORDERS: Resume previous activity, Activity as tolerated WEIGHT BEARING STATUS: As tolerated DIET AFTER DISCHARGE: ADA TREATMENT/EQUIPMENT ORDERS: Physical Therapy For: Evalulation/Treatment Occupational Therapy For: Evaluation/Treatment DISCHARGE MEDICATIONS: Home Meds Reported Medications Cholecalciferol (Vitamin D3) (D3-50) 50,000 Unit Capsule, 2000 UNIT PO DAILY for supplement, CAP 10/19/21 Bisacodyl (BISACODYL) 10 Mg Supp.rect, 10 MG RC PRN DAILY PRN for CONSTIPATION, SUPP.RECT 0 Refills 10/19/21 Ondansetron Hcl (ZOFRAN) 4 Mg Tablet, 4 MG PO PRN Q4HRS PRN for NAUSEA/VOMITING, TAB 10/01/19 Sertraline Hcl (ZOLOFT) 50 Mg Tablet, 75 MG PO DAILY for ANTI-DEPRESSANT, TAB 0 Refills 10/01/19 Pantoprazole Sodium (PROTONIX) 20 Mg Tablet.dr, 20 MG PO DAILY for acid reflux, TAB 10/01/19 Magnesium Oxide (MAGNESIUM OXIDE) 400 Mg Tablet, 1 TAB PO BID for supplement, #60 TAB 5 Refills 10/01/19 Lisinopril (LISINOPRIL) 20 Mg Tablet, 1 TAB PO DAILY for htn, #30 TAB 5 Refills 10/01/19 Insulin Detemir (LEVEMIR) 100 Unit/1 Ml Vial, 24 UNIT SQ HS for diabetes, VIAL 10/01/19 Insulin Lispro (HUMALOG) 100 Unit/1 Ml Vial, 5 UNIT SQ TIDAC for diabetes, VIAL 10/01/19 Apixaban (ELIQUIS) 5 Mg Tablet, 5 MG PO BIDACLD for prophylaxis of stroke, TAB 10/01/19 Clopidogrel Bisulfate (CLOPIDOGREL) 75 Mg Tablet, 75 MG PO DAILY for TO PREVENT BLOOD CLOTS, #30 TAB 0 Refills 10/01/19 Atorvastatin Calcium (ATORVASTATIN CALCIUM) 20 Mg Tablet, 20 MG PO HS for FOR CHOLESTEROL, #30 TAB 0 Refills 10/01/19 ROSANGELA CHOWDHURY MD Oct 24, 2021 09:35
--- NOTE | 2021-10-24 10:43 | NUR ---
SS following up with discharge planning. SS reviewed pt chart and discussed with pt RN. Pt is currently on room air. COVID19 negative. Pt is LTC resident from [facility], ; fax [phone]. No PT/OT needs. Discharge orders received and phoned and faxed to [facility] with updated clinical. Pt will discharge today and return to [facility] between 1300 and 1330 via stretcher. Facility arranged transport. Pt and pt's RN notified. Packet placed on chart.
[2021-10-24 10:57] VITALS: BP 140/66
--- NOTE | 2021-10-24 13:21 | NUR ---
DISCHARGED PATIENT TO [facility]. REPORT GIVEN TO NURSE NAYAK. [facility] ESCORTED PATIENT OFF UNIT PER STRETCHER.
[2021-10-24] MEDS ORDERED: AZITHROMYCIN 250 MG TABLET. PO SCH (21:00)
== END 2021-10-24 13:15 | DRG 193 ==
LOC: ER 17:43 → 6 SOUTH 19:43
PROVIDERS: ADMIT Internal Medicine; ATTEND Internal Medicine
DX: J18.9 Pneumonia, unspecified organism (principal); N17.0 Acute kidney failure with tubular necrosis; G93.41 Metabolic encephalopathy; E87.0 Hyperosmolality and hypernatremia; R47.01 Aphasia; E11.21 Type 2 diabetes mellitus with diabetic nephropathy; E11.42 Type 2 diabetes mellitus with diabetic polyneuropathy; E78.00 Pure hypercholesterolemia, unspecified; E78.5 Hyperlipidemia, unspecified; E86.0 Dehydration; F01.50 Vascular dementia, unspecified severity, without behavioral disturbance, psychotic disturbance, mood disturbance, and anxiety; G89.29 Other chronic pain; I10 Essential (primary) hypertension; I69.311 Memory deficit following cerebral infarction; M47.9 Spondylosis, unspecified; Z79.01 Long term (current) use of anticoagulants; Z82.0 Family history of epilepsy and other diseases of the nervous system; Z82.49 Family history of ischemic heart disease and other diseases of the circulatory system; Z87.891 Personal history of nicotine dependence; F32.A Depression, unspecified; I95.9 Hypotension, unspecified; Z20.822 Contact with and (suspected) exposure to COVID-19
CPT/HCPCS: 36415; 70450; 71045; 72125; 80048; 80053; 82962; 83605; 83735; 83880; 84484; 85025; 87040; 87428; 93005; 96360; J0456; J0696; J1815; J7050; J7060; J7120; 99285-25; G0378; J7030